=== PATIENT | female | born 1965 | race Caucasian/White ===

== ENCOUNTER 2018-09-28 18:27 | Emergency (ER) | payer OTHER ==
[~2018-09-28] VITALS: Ht 157.5 cm; Wt 52.2 kg
== END 2018-09-28 21:13 | disposition home or self-care (01) ==
LOC: ER 18:27
DX: R11.10 Vomiting, unspecified (principal); F41.8 Other specified anxiety disorders

== ENCOUNTER 2020-10-02 05:54 | Emergency (ER) | payer OTHER ==
[~2020-10-02] VITALS: Ht 157.5 cm; Wt 52.2 kg
== END 2020-10-02 18:12 | disposition home or self-care (01) ==
LOC: ER 05:54
DX: K29.70 Gastritis, unspecified, without bleeding (principal)

== ENCOUNTER 2021-06-03 09:00 | Outpatient (CLI) | payer OTHER | END 2021-06-03 09:15 | disposition home or self-care (01) | LOC: PPH VACUNA 09:00 | PROVIDERS: ATTEND Emergency Medicine Pediatric Emergency Medicine | DX: Z23 Encounter for immunization (principal) ==

== ENCOUNTER 2021-10-12 08:00 | Outpatient (CLI) | payer OTHER | END 2021-10-12 08:30 | disposition home or self-care (01) | LOC: PPH VACUNA 08:00 | PROVIDERS: ATTEND Emergency Medicine Pediatric Emergency Medicine | DX: Z23 Encounter for immunization (principal) ==

== ENCOUNTER 2022-06-24 14:41 | Outpatient (CLI) | payer OTHER | END 2022-06-24 14:51 | disposition home or self-care (01) | LOC: PPH VACUNA 14:41 | PROVIDERS: ATTEND Emergency Medicine Pediatric Emergency Medicine | DX: Z23 Encounter for immunization (principal) ==

== ENCOUNTER 2023-08-10 08:16 | Outpatient (CLI) | payer OTHER | END 2023-08-10 08:26 | disposition home or self-care (01) | LOC: SONOGRAMA 08:16 | PROVIDERS: ATTEND Internal Medicine | DX: R11.2 Nausea with vomiting, unspecified (principal) ==